=== PATIENT | female | born 1990 | race Caucasian/White ===

== ENCOUNTER → 2020-06-07 | Day surgery (SDC) | payer OTHER ==
[~2020-06-07] VITALS: Ht 167.6 cm; Wt 131.1 kg
[~2020-06-07] MED LIST: COLACE 100MG C100 MG PO; DOCUSATE SODIU100 MG PO; HYDROCODON-ACE1 EAC4 PO; IBUPROFEN600 MG PO; IBUPROFEN800 MG PO; NORCO 5-325 TA1 EACH PO; PAIN & FEVER325 MG PO; PINWORM TR50 MG/1 ML PO; PRENATAL VITAM1 EAC8 PO; [UNRECOGNIZED DRUG - OTHER] PO; [UNRECOGNIZED DRUG - OTHER] TP
[2020-06-07 07:10] LABS: HEMOGLOBIN 12.3 gm/dl (12.3-15.3); RED BLOOD COUNT 4.83 M/UL (4.00-5.10); WHITE BLOOD COUNT 7.9 K/UL (4.5-11.0)
== END | disposition home or self-care (01) ==
LOC: OR 06:22
PROVIDERS: Obstetrics & Gynecology
DX: N81.89 Other female genital prolapse (principal); N94.10 Unspecified dyspareunia; B80 Enterobiasis; F41.1 Generalized anxiety disorder; F33.0 Major depressive disorder, recurrent, mild; E66.01 Morbid (severe) obesity due to excess calories; Z68.42 Body mass index [BMI] 45.0-49.9, adult; Z91.040 Latex allergy status
CPT/HCPCS: 36415; 81001; 84703; 85025; J1100; J1885; J2250; J2405; J2704; J2795; J3010; J7120